=== PATIENT | male | born 1965 | race Caucasian/White ===

== ENCOUNTER 2022-10-14 08:57 | Day surgery (SDC) | payer BC ==
[~2022-10-14] VITALS: Ht 182.9 cm; Wt 108.9 kg
[~2022-10-14 08:57] MED LIST: ADLT ASA LOW81 MG PO; ATORVASTATIN CA40 MG PO; HYDROCHLOROT12.5 M1 PO; METFORMIN500 M2 PO; MICARDIS80 MG PO; NORVASC5 M1 PO; SILDENAFIL50 M1 PO
[2022-10-14 11:53] VITALS: BP 104/66
== END 2022-10-14 12:19 | disposition home or self-care (01) | DRG 951 ==
LOC: ENDO 08:57
PROVIDERS: ATTEND Surgery
PROC: 0DJD8ZZ Inspection of Lower Intestinal Tract, Via Natural or Artificial Opening Endoscopic (ICD-10-PCS; principal; 2022-10-14)
DX: Z12.11 Encounter for screening for malignant neoplasm of colon (principal); I10 Essential (primary) hypertension; E11.9 Type 2 diabetes mellitus without complications; Z79.84 Long term (current) use of oral hypoglycemic drugs